=== PATIENT | male | born 1980 | race Caucasian/White ===

== ENCOUNTER 2021-11-15 05:35 | Day surgery (SDC) | payer OTHER ==
[~2021-11-15] VITALS: Ht 190.5 cm; Wt 111.8 kg
[~2021-11-15 05:35] MED LIST: FAMOTIDINE20 MG PO; LEVOTHYROXINE25 MC1 PO; MULTI VITAMIN1 EACH PO; TIZANIDINE HCL4 MG PO; TYLENOL EXTRA500 MG PO
[2021-11-15] MEDS ORDERED: ZOLOFT25 MG PO (05:58)
--- NOTE | 2021-11-15 10:07 | NUR ---
11/15/21 1007 Arleen Horta 1000 PATIENT ARRIVES TO PACU RESTING WITH EYES CLOSED, OPENS EYES WITH VERBAL STIMULI, MOVING ARMS, BACK TO SLEEP WHEN NOT STIMULATED. RESP EVEN AND UNLABORED, MASK AT 8 LITERS 1004 PATIENT AWAKE OFF/ON, BUT DOES NOT FOLLOW COMMANDS. MOVING ALL EXTREMITIES. RESP EVEN AND UNALBORED, MASK OFF. PATIENT VERY DROWSY. ASKING FOR HAM SANDWICH.
--- NOTE | 2021-11-15 11:29 | NUR ---
1015 PATIENT REPORT RECIEVED FROM SHAJI RYDER. PATIENT AWAKE AND ORIENTED. PATIENT ABLE TO AMBULATE AND VOID. PATIENT DENIES ANY PAIN OR NAUSEA. BREATHING EQUAL AND UNLABORED. OXYGEN SATURATIONS 95% ON ROOM AIR. 1020 DR. TEJADA IN ROOM TALKING TO CAREGIVER. 1100 PATIENT DRINKING WATER AND GETTING DRESSED. 1115 PATIENT DISCHARGE INSTRUCTIONS GIVEN AND UNDERSTOOD. PERSCRIPTION GIVEN TO CAREGIVER. NO QUESTIONS AT THIS TIME. PATIENT WAS WHEELED OUT OF FACILITY TO PRIVATE AUTO.
== END 2021-11-15 11:15 | disposition home or self-care (01) ==
LOC: DS 05:35
PROVIDERS: ATTEND Dentist General Practice
PROC: 0CDWXZ2 Extraction of Upper Tooth, All, External Approach (ICD-10-PCS; 2021-11-15)
PROC: 0CDXXZ2 Extraction of Lower Tooth, All, External Approach (ICD-10-PCS; principal; 2021-11-15 07:30)
DX: K02.9 Dental caries, unspecified (principal); K21.9 Gastro-esophageal reflux disease without esophagitis; E03.9 Hypothyroidism, unspecified; E55.9 Vitamin D deficiency, unspecified; Q99.2 Fragile X chromosome
CPT/HCPCS: 00170; 80048; 85025; J0330; J2001; J2250; J2405; J2704; J7121